=== PATIENT | female | born 1990 ===

== ENCOUNTER 2017-11-06 12:37 | Outpatient (CLI) | payer OTHER | END 2017-11-06 13:11 | disposition home or self-care (01) | LOC: LAB 12:37 | DX: Z00.00 Encounter for general adult medical examination without abnormal findings (principal); I10 Essential (primary) hypertension; E03.9 Hypothyroidism, unspecified; E78.00 Pure hypercholesterolemia, unspecified; N91.0 Primary amenorrhea; E55.9 Vitamin D deficiency, unspecified; Z21 Asymptomatic human immunodeficiency virus [HIV] infection status; R79.9 Abnormal finding of blood chemistry, unspecified; R79.89 Other specified abnormal findings of blood chemistry ==

== ENCOUNTER 2017-12-05 09:47 | Outpatient (CLI) | payer OTHER | END 2017-12-05 09:50 | disposition home or self-care (01) | LOC: LAB 09:47 | DX: R50.9 Fever, unspecified (principal) ==

== ENCOUNTER 2018-06-15 11:01 | Outpatient (CLI) | payer OTHER | END 2018-06-15 11:35 | disposition home or self-care (01) | LOC: LAB 11:01 | DX: E55.9 Vitamin D deficiency, unspecified (principal); E86.0 Dehydration; D50.8 Other iron deficiency anemias; E08.10 Diabetes mellitus due to underlying condition with ketoacidosis without coma; E08.610 Diabetes mellitus due to underlying condition with diabetic neuropathic arthropathy; E03.1 Congenital hypothyroidism without goiter; E03.8 Other specified hypothyroidism; E11.9 Type 2 diabetes mellitus without complications; R53.81 Other malaise; R88.8 Abnormal findings in other body fluids and substances; E63.8 Other specified nutritional deficiencies ==

== ENCOUNTER 2018-08-07 15:31 | Outpatient (CLI) | payer OTHER | END 2018-08-07 16:50 | disposition home or self-care (01) | LOC: LAB 15:31 | DX: Z11.3 Encounter for screening for infections with a predominantly sexual mode of transmission (principal) ==

== ENCOUNTER 2018-09-01 14:23 | Emergency (ER) | payer OTHER ==
[~2018-09-01] VITALS: Ht 154.9 cm; Wt 108.9 kg
[2018-09-01] MEDS ORDERED: TRAZODONE HCL100 MG (15:27)
[2018-09-01] MEDS ORDERED: METFORMIN HCL500 MG (15:27)
[2018-09-01] MEDS ORDERED: ADIPEX-P37.5 MG (15:27)
[2018-09-01] MEDS ORDERED: AMOXICILLIN500 MG (15:28)
== END 2018-09-01 21:11 | disposition home or self-care (01) ==
LOC: ER 14:23
DX: R10.84 Generalized abdominal pain (principal); R11.2 Nausea with vomiting, unspecified

== ENCOUNTER 2018-09-19 10:37 | Emergency (ER) | payer OTHER ==
[~2018-09-19] VITALS: Ht 154.9 cm; Wt 107.5 kg
[~2018-09-19 10:37] MED LIST: ADIPEX-P37.5 MG; AMOXICILLIN500 MG; METFORMIN HCL500 MG; TRAZODONE HCL100 MG
[2018-09-19] MEDS ORDERED: RISPERDAL0.5 MG PO (11:13)
[2018-09-19] MEDS ORDERED: PROZAC20 MG PO (11:13)
[2018-09-19] MEDS ORDERED: ATIVAN0.5 M1 PO (11:13)
[2018-09-19] MEDS ORDERED: KETO10TA2 PO (16:31)
[2018-09-19] MEDS ORDERED: ZOFRAN ODT4 MG SL (16:31)
[2018-09-19] MEDS ORDERED: PEPCID AC20 MG PO (16:31)
[2018-09-19] MEDS ORDERED: TAMS0.4C PO (16:31)
== END 2018-09-19 18:08 | disposition home or self-care (01) ==
LOC: ER 10:37
DX: N20.0 Calculus of kidney (principal)

== ENCOUNTER 2019-03-02 10:36 | Emergency (ER) | payer OTHER ==
[~2019-03-02] VITALS: Ht 154.9 cm; Wt 101.6 kg
[~2019-03-02 10:36] MED LIST changes: +ATIVAN0.5 M1 PO; +KETO10TA2 PO; +PEPCID AC20 MG PO; +PROZAC20 MG PO; +RISPERDAL0.5 MG PO; +TAMS0.4C PO; +ZOFRAN ODT4 MG SL
[2019-03-02] MEDS ORDERED: MIRENA1 EACH (11:24)
== END 2019-03-02 13:42 | disposition home or self-care (01) ==
LOC: ER 10:36
DX: B34.9 Viral infection, unspecified (principal)

== ENCOUNTER → 2020-04-21 | Outpatient (CLI) | payer OTHER ==
[~2020-04-21] MED LIST changes: +MIRENA1 EACH
== END | disposition home or self-care (01) ==
LOC: PPH VACUNA 15:41
DX: Z23 Encounter for immunization (principal)

== ENCOUNTER 2020-06-23 13:26 | Outpatient (CLI) | payer OTHER | END 2020-06-23 15:00 | disposition home or self-care (01) | LOC: PPH VACUNA 13:26 | DX: Z23 Encounter for immunization (principal) ==

== ENCOUNTER 2021-04-05 09:30 | Outpatient (CLI) | payer OTHER | END 2021-04-05 10:00 | disposition home or self-care (01) | LOC: PPH VACUNA 09:30 | PROVIDERS: ATTEND Emergency Medicine Pediatric Emergency Medicine | DX: Z23 Encounter for immunization (principal) ==